=== PATIENT | male | born 1995 | race Caucasian/White ===

== ENCOUNTER 2019-01-17 13:01 | Emergency (ER) | payer MEDICAID, SELFPAY ==
[2019-01-17 13:10] VITALS: BP 135/87; PULSE 89; RESP 18; TEMP 36.7; O2SAT 98; BMI 21.9
--- NOTE | 2019-01-17 13:13 | CT_ITS ---
CT abdomen pelvis wo con CLINICAL INDICATION: Severe abdominal pain for weeks ITS.REASON: pain ORDERING PHYSICIAN: PATIENT AGE: 23 years COMPARISON: 05/01/2018 TECHNIQUE: Axial images obtained with sagittal and coronal reformats. All CT scans at the facility use one or more dose reduction, viz: automated exposure control, ma/kV adjustment per patient size (including targeted exams where dose is matched to indication, i.e. head), or iterative reconstruction technique. PROCEDURE: Oral Contrast: None IV Contrast: None . FINDINGS: The lung bases are clear. The liver, spleen, adrenal glands, pancreas, and kidneys have an unremarkable unenhanced CT appearance. Patient's sparsity of intra-abdominal fat and lack of IV and oral contrast results in limited evaluation of the abdomen and pelvis. No evidence of intestinal obstruction or free air. There are nondistended fluid-filled loops of small bowel throughout which could be related to enteritis. The appendix is not clearly delineated small calcification is present in the right pelvic region which is of unknown etiology and may be due to a phlebolith. Cannot exclude the possibility of a ureteral stone. No hydronephrosis or ureteral dilatation is evident. No acute bony anomalies. IMPRESSION: 1. There are multiple unopacified bowel loops present within the abdomen/pelvis which could obscure or mimic pathology. If symptoms persists, consider repeating exam with IV and oral contrast administration. The appendix is not clearly delineated and cannot be cleared. 2. Possible enteritis. 3. Small calcific density in the right pelvic region and may be due to phlebolith or nonobstructive ureteral stone. This is not readily apparent on previous study of 05/01/2018
--- NOTE | 2019-01-17 13:13 | XR_ITS ---
XR chest portable HISTORY: Pain ITS.REASON: abd pain ORDERING PHYSICIAN: PATIENT AGE: 23 years COMPARISON: 06/17/2013 FINDINGS: The cardiomediastinal silhouette and pulmonary vascularity are within normal limits. The lungs are clear without infiltrates, suspicious nodules, or pleural effusions. No acute bony abnormalities. IMPRESSION: Negative chest, no acute finding
--- NOTE | 2019-01-17 13:17 | [facility].EDGENADL ---
ED Disposition Clinical Impression: Gastroenteritis Disposition: Home, Self-Care Condition on Discharge: Good Instructions: Acute Abdominal Pain Prescriptions: levoFLOXacin [Levaquin 500mg tab] 500 mg PO DAILY #7 tab Pantoprazole Sodium [Protonix 40mg tablet] 40 mg PO DAILY 30 Days #30 tab Referrals: Carlito Alston MD [Primary Care Provider] - - Critical Care Critical Care Time: No Attestation: On , the high probability of a clinically significant, sudden or life threatening deterioration of the following system(s) required my full and direct attention, intervention and personal management. The time I documented below is in addition to time spent performing reported procedures but includes the following listed in this critical care notation. Medical Decision Making - Medical Records Medical records reviewed: Yes: I reviewed the patient's medical records. - Mirza Inquiry Pt receiving controlled substance: No Vital Signs: 01/17/19 13:10 01/17/19 14:02 Temperature 98.1 F Temperature Source Oral Pulse Rate [Left Radial] 89 61 Respiratory Rate 18 Blood Pressure [Right Arm] 135/87 115/70 Blood Pressure Mean [Right Arm] 103 85 Blood Pressure Source [Right Arm] Automatic Cuff Blood Pressure Position [Right Arm] Sitting 02 Sat by Pulse Oximetry 98 98 Oxygen Delivery Method Room Air - Lab Data Lab results reviewed: Yes: I reviewed the patient's lab results. Lab Results 01/17/19 13:25: Urine Color Yellow, Urine Appearance Sl cloudy, Urine pH 7.0, Ur Specific [place] 1.015, Urine Protein 1+, Urine Glucose (UA) Negative, Urine Ketones Negative, Urine Blood Trace-i, Urine Nitrate Negative, Urine Bilirubin Negative, Urine Urobilinogen 0.2, Ur Leukocyte Esterase Negative, Urine WBC Occasional, Ur Squamous Epith Cells Occasional, Urine Bacteria 2+, Urine Mucus 2+ 01/17/19 13:25: WBC 8.3, RBC 4.93, Hgb 14.7, Hct 42.4, MCV 85.9, MCH 29.9, MCHC 34.8, RDW 12.7, Plt Count 184, MPV 8.2, Neut % (Auto) 51.8, Lymph % (Auto) 32.3, [place] % (Auto) 7.5, Eos % (Auto) 8.1, Baso % (Auto) 0.3, Neut # (Auto) 4.3, Lymph # (Auto) 2.7, [place] # (Auto) 0.6, Eos # (Auto) 0.7 H, Baso # (Auto) 0.0 01/17/19 13:25: Sodium 143, Potassium 3.9, Chloride 105, Carbon Dioxide 28, Anion Gap 13.9, BUN 9, Creatinine 0.83, Estimated Creat Clear 122, Estimated GFR 113, Est GFR ( Amer) 137, Glucose 95, Calcium 8.7, Total Bilirubin 0.6, AST 14 L, ALT 24, Alkaline Phosphatase 49, Troponin I < 0.02, Total Protein 7.1, Albumin 3.8, Globulin 3.3 H, Albumin/Globulin Ratio 1.2, Lipase 85 01/17/19 13:25: Urine Opiates Screen Negative, Urine Methadone Screen Negative, Ur Barbituates Screen Negative, Ur Phencyclidine Scrn Negative, Ur Amphetamines Screen Negative, U Benzodiazepines Scrn Negative, Urine Cocaine Screen Negative, U Marijuana (THC) Screen Positive H Result diagrams: 01/17/19 13:25 01/17/19 13:25 Orders (Tests/Meds): ED MEDICATIONS Generic Name Dose Route Start Last Admin Trade Name Freq PRN Reason Stop Dose Admin Sodium Chloride 1,000 mls @ 999 mls/hr 01/17/19 13:30 01/17/19 13:34 Sod Chlor 0.9% 1000ml Bag IV 01/17/19 14:30 999 mls/hr .Q1H1M KERWIN Administration Discontinued Medications Generic Name Dose Route Start Last Admin Trade Name Freq PRN Reason Stop Dose Admin Pantoprazole Sodium 40 mg 01/17/19 13:14 01/17/19 13:34 Protonix 40mg Vial IV 01/17/19 13:15 40 mg ONCE ONE Administration Sodium Chloride 8 ml 01/17/19 13:14 01/17/19 13:34 Saline Flush 10ml Syringe IV 01/17/19 13:15 8 ml ONCE ONE Administration ORDERS Category Date Time Status Urine Culture Stat Micro 01/17/19 13:25 Received ECG Request by /Nse Stat Y 01/17/19 13:13 Ordered - CT Data CT Scan: Abdomen, Pelvis Time Received: 14:[address] Reviewed: Yes: I have viewed the radiologist's interpretation Preliminary Findings: Abnormal (enteritis, no obstruction) - ECG Data Tracing #1 I reviewed this ECG
--- NOTE | 2019-01-17 13:21 | ED_ITS ---
ED Disposition Clinical Impression: Gastroenteritis Disposition: Home, Self-Care Condition on Discharge: Good Instructions: Acute Abdominal Pain Prescriptions: levoFLOXacin [Levaquin 500mg tab] 500 mg PO DAILY #7 tab Pantoprazole Sodium [Protonix 40mg tablet] 40 mg PO DAILY 30 Days #30 tab Referrals: Carlito Alston MD [Primary Care Provider] - - Critical Care Critical Care Time: No Attestation: On , the high probability of a clinically significant, sudden or life threatening deterioration of the following system(s) required my full and direct attention, intervention and personal management. The time I documented below is in addition to time spent performing reported procedures but includes the following listed in this critical care notation. Medical Decision Making - Medical Records Medical records reviewed: Yes: I reviewed the patient's medical records. - Mirza Inquiry Pt receiving controlled substance: No Vital Signs: 01/17/19 13:10 01/17/19 14:02 Temperature 98.1 F Temperature Source Oral Pulse Rate [Left Radial] 89 61 Respiratory Rate 18 Blood Pressure [Right Arm] 135/87 115/70 Blood Pressure Mean [Right Arm] 103 85 Blood Pressure Source [Right Arm] Automatic Cuff Blood Pressure Position [Right Arm] Sitting 02 Sat by Pulse Oximetry 98 98 Oxygen Delivery Method Room Air - Lab Data Lab results reviewed: Yes: I reviewed the patient's lab results. Lab Results 01/17/19 13:25: Urine Color Yellow, Urine Appearance Sl cloudy, Urine pH 7.0, Ur Specific [place] 1.015, Urine Protein 1+, Urine Glucose (UA) Negative, Urine Ketones Negative, Urine Blood Trace-i, Urine Nitrate Negative, Urine Bilirubin Negative, Urine Urobilinogen 0.2, Ur Leukocyte Esterase Negative, Urine WBC Occasional, Ur Squamous Epith Cells Occasional, Urine Bacteria 2+, Urine Mucus 2+ 01/17/19 13:25: WBC 8.3, RBC 4.93, Hgb 14.7, Hct 42.4, MCV 85.9, MCH 29.9, MCHC 34.8, RDW 12.7, Plt Count 184, MPV 8.2, Neut % (Auto) 51.8, Lymph % (Auto) 32.3, [place] % (Auto) 7.5, Eos % (Auto) 8.1, Baso % (Auto) 0.3, Neut # (Auto) 4.3, Lymph # (Auto) 2.7, [place] # (Auto) 0.6, Eos # (Auto) 0.7 H, Baso # (Auto) 0.0 01/17/19 13:25: Sodium 143, Potassium 3.9, Chloride 105, Carbon Dioxide 28, Anion Gap 13.9, BUN 9, Creatinine 0.83, Estimated Creat Clear 122, Estimated GFR 113, Est GFR ( Amer) 137, Glucose 95, Calcium 8.7, Total Bilirubin 0.6, AST 14 L, ALT 24, Alkaline Phosphatase 49, Troponin I < 0.02, Total Protein 7.1, Albumin 3.8, Globulin 3.3 H, Albumin/Globulin Ratio 1.2, Lipase 85 01/17/19 13:25: Urine Opiates Screen Negative, Urine Methadone Screen Negative, Ur Barbituates Screen Negative, Ur Phencyclidine Scrn Negative, Ur Amphetamines Screen Negative, U Benzodiazepines Scrn Negative, Urine Cocaine Screen Negative, U Marijuana (THC) Screen Positive H Result diagrams: 01/17/19 13:25 01/17/19 13:25 Orders (Tests/Meds): ED MEDICATIONS Generic Name Dose Route Start Last Admin Trade Name Freq PRN Reason Stop Dose Admin Sodium Chloride 1,000 mls @ 999 mls/hr 01/17/19 13:30 01/17/19 13:34 Sod Chlor 0.9% 1000ml Bag IV 01/17/19 14:30 999 mls/hr .Q1H1M KERWIN Administration Discontinued Medications Generic Name Dose Route Start Last Admin Trade Name Fr
[2019-01-17 13:32] LABS: Microscopic, Urine URINE MICROSCOPIC (MICROSCOPIC)
[2019-01-17 13:37] LABS: Basophils % 0.3 % (0.1-2.0); Eosinophils # 0.7 K/mm3 (0.0-0.4); Eosinophils % 8.1 % (0.1-12.0); Hematocrit 42.4 % (42.0-52.0); Hemoglobin 14.7 g/dL (14.1-18.0); Lymphocytes # 2.7 K/mm3 (0.7-4.5); Lymphocytes % 32.3 % (10-50); Mean Corpuscular HGB Conc 34.8 g/dL (31.8-35.4); Mean Corpuscular Hemoglobin 29.9 pg (27.0-31.2); Mean Corpuscular Volume 85.9 fl (80-94); Mean Platelet Volume 8.2 fl (7.4-10.4); Monocytes # 0.6 K/mm3 (0.1-1.0); Monocytes % 7.5 % (1.7-9.3); Neutrophils # 4.3 K/mm3 (1.8-7.8); Neutrophils % 51.8 % (37.0-80.0); Platelet Count 184 K/mm3 (142-424); Red Blood Count 4.93 M/mm3 (4.60-6.20); Red Cell Distribution Width 12.7 % (11.5-17.5); White Blood Count 8.3 K/mm3 (4.8-10.8)
[2019-01-17 13:40] LABS: Appearance,Urine SL CLOUDY (Clear); Bilirubin,Urine Negative (Negative); Blood, Urine TRACE-I (Negative); Color,Urine YELLOW (Yellow); Glucose,Urine (UA) Negative (Negative); Ketones,Urine Negative (Negative); Leukocyte Esterase,Urine Negative (Negative); Nitrate,Urine Negative (Negative); Protein,Urine 1+ (Negative); Specific Gravity, Urine 1.015 (1.005-1.030); Urobilinogen,Urine 0.2 EU/dl (0.2)
[2019-01-17 13:47] LABS: Amphetamine/Metha Screen,Urine Negative ng/mL (<1000); Barbiturates Screen,Urine Negative ng/mL (<200); Benzodiazepines Screen,Urine Negative ng/mL (<200); Cannabinoid Screen,Urine Positive ng/mL (<50); Cocaine Screen,Urine Negative ng/mL (<300); Methadone Screen,Urine Negative ng/mL (<300); Opiate Screen,Urine Negative ng/mL (<300); Phencyclidine Screen,Urine Negative ng/mL (<25)
[2019-01-17 13:49] LABS: Bacteria,Urine 2+ /lpf; Mucus,Urine 2+ /lpf; Squamous Epithelial Cell,Urine Occasional #/hpf (0-5); WBC,Urine Occasional #/hpf (0-3)
[2019-01-17 13:51] LABS: Alanine Aminotransferase 24 U/L (12-78); Albumin Level 3.8 gm/dL (3.4-5.0); Albumin/Globulin Ratio 1.2 (1.1-1.8); Alkaline Phosphatase 49 U/L (46-116); Anion Gap 13.9 mEq/L (5-15); Aspartate Amino Transferase 14 U/L (15-37); Bilirubin,Total 0.6 mg/dL (0.2-1.0); Blood Urea Nitrogen 9 mg/dL (7-18); Calcium 8.7 mg/dL (8.5-10.1); Carbon Dioxide 28 mmol/L (21.0-32.0); Chloride 105 mmol/L (98-107); Creatinine Clearance Estimated 122 mL/min (50-200); Creatinine,Serum 0.83 mg/dL (0.70-1.30); Estimated Glomerular Filt Rate 113 ml/min (>60); GFR (African American) 137 ML/MIN (>60); Globulin 3.3 gm/dl (1.3-3.2); Glucose 95 mg/dL (74-106); Lipase 85 u/L (73-393); Potassium 3.9 mmoL/L (3.5-5.1); Sodium 143 mmol/L (136-145); Total Protein,Serum 7.1 gm/dL (6.4-8.2); Troponin I < 0.02 ng/ml (0.00-0.06)
[2019-01-17 14:02] VITALS: BP 115/70; PULSE 61; O2SAT 98
[2019-01-17 14:29] VITALS: BP 126/66; PULSE 65; RESP 18; TEMP 36.6; O2SAT 100
== END 2019-01-17 14:34 | disposition home or self-care (01) ==
PROVIDERS: Emergency Provider Emergency Medicine Emergency Medical Services; PCP Family Medicine
DX: K52.9 Noninfective gastroenteritis and colitis, unspecified (principal); K21.9 Gastro-esophageal reflux disease without esophagitis; F17.210 Nicotine dependence, cigarettes, uncomplicated
CPT/HCPCS: 71045; 74176; 80053; 80305; 81001; 83690; 84484; 85025; 87086; 93005; 96365; 96375; 99284